=== PATIENT | male | born 1950 | race Caucasian/White ===

== ENCOUNTER 2024-04-16 12:20 | Emergency (ER) | payer MEDICARE, SELFPAY ==
--- NOTE | 2024-04-16 12:25 | ED.UPPEXIN ---
HPI - Extremity Injury (Upper) <JENNIFER Quinn Last Filed: 04/16/24 13:32> General Chief Complaint: Skin/Abscess/Foreign Body Stated Complaint: finger smashed from docking a boat Time Seen by Provider: 04/16/24 12:24 History of Present Illness HPI narrative: This is a 74-year-old male presents to the emergency department due to a left hand or finger injury. He was working with the rope to tie his boat to the dock when it got stuck between the rope and some of the metallic riging, causing him to injure his left 4th and 3rd digits to the distal tips. His tetanus is up-to-date. He was right-handed. Denies any pain to his hand or wrist or any other part of his body. Related Data Previous Rx's Medication Instructions Recorded cephalexin 500 mg capsule 500 mg PO QID #28 caps 04/16/24 Allergies Allergy/AdvReac Type Severity Reaction Status Date / Time No Known Drug Allergies Allergy Verified 04/16/24 12:27 Review of Systems <JENNIFER Quinn Last Filed: 04/16/24 13:32> Review of Systems Narrative: GENERAL: Denies chills, fatigue, malaise, fever, sweats. HEENT: Denies sinus pain, ear pain, sore throat, difficulty swallowing, dizziness. RESPIRATORY: Denies dyspnea, cough, wheezing, hemoptysis, sputum. CARDIOVASCULAR: Denies chest pain, palpitations, orthopnea, edema, GASTROINTESTINAL: Denies nausea, vomiting, abdominal pain, diarrhea, constipation, melena. : Denies dysuria, frequency, incontinence, hematuria, urinary retention. MUSCULOSKELETAL: denies weakness, joint pain, or bony pain SKIN: Left 3rd and 4th avulsion injuries NEUROLOGIC: Denies weakness, headache, numbness, change in speech, confusion, seizures, incoordination. PSYCHIATRIC: No concerning psychosocial issues. 12 point review of systems is negative except for those stated above Patient History <JENNIFER Quinn Last Filed: 04/16/24 13:32> Social History Smoking Status: Never smoker Exam <JENNIFER Quinn Last Filed: 04/16/24 13:32> Narrative Exam Narrative: GENERAL: Well-developed patient, in mild distress. HEAD: Atraumatic. Normocephalic. EYES: Pupils equal round and reactive. Extraocular motions intact. No scleral icterus. No injection or drainage. ENT: Nose without bleeding, purulent drainage. Throat without erythema, tonsillar hypertrophy or exudate. Airway patent. NECK: Trachea midline. Non tender EXTREMITIES: No edema or joint tenderness. No tenderness to palpation to the DIP the 3rd and 4th digits. NEURO: AOx3. SKIN: Avulsion injuries to the pads of the left 3rd and 4th digits, no pain to the DIP ease. Minimal oozing bleeding. Nail beds are intact. Initial Vital Signs Initial Vital Signs: Vital Signs Temperature 98.2 F 04/16/24 12:27 Pulse Rate 87 04/16/24 12:27 Respiratory Rate 16 04/16/24 12:27 Blood Pressure 147/85 H 04/16/24 12:27 Pulse Oximetry 97 04/16/24 12:27 Oxygen Delivery Method Room Air 04/16/24 12:27 <Marisela Amezquita DO - Last Filed: 04/17/24 07:12> Initial Vital Signs Initial Vital Signs: Vital Signs Temperature 98.2 F 04/16/24 12:27 Pulse Rate 87 04/16/24 12:27 Respiratory Rate 16 04/16/24 12:27 Blood Pressure 147/85 H 04/16/24 12:27 Pulse Oximetry 97 04/16/24 12:27 Oxygen Delivery Method Room Air 04/16/24 12:27 Course <Flavio Huston PA-C - Last Filed: 04/16/24 13:32> Orders Ordered: ED Orders 04/16/24 12:33 XR hand LT min 3V Stat Vital Signs Vital signs: Vital Signs - 8 hr 04/16/24 12:27 Temperature 98.2 F Pulse Rate 87 Respiratory Rate 16 Blood Pressure 147/85 H Pulse Oximetry 97 Oxygen Delivery Method Room Air <Marisela Amezquita DO - Last Filed: 04/17/24 07:12> Orders Ordered: ED Orders 04/16/24 12:33 XR hand LT min 3V Stat Vital Signs Vital signs: Vital Signs - 8 hr 04/16/24 12:27 Temperature 98.2 F Pulse Rate 87 Respiratory Rate 16 Blood Pressure 147/85 H Pulse Oximetry 97 Oxygen Delivery Method Room Air MDM - Extremity Injury (Upper) <JENNIFER Quinn Last Filed: 04/16/24 13:32> Imaging Data Extremity x-ray #1: Radiologist's Impression: [address] [address] XRay Report Signed Patient: Hung Cervantes MR#: [id number] : 1950 Acct:[id number] Age/Sex: 74 / M Date of Service: 04/16/24 Loc: ED Accession Number: [id number] Procedure: XR hand LT min 3V Ordering Provider: Marisela Amezquita D.O. PROCEDURE: XR HAND LT MIN 3V INDICATIONS: smashed fingers with open wound TECHNIQUE: 3 views of the hand(s) acquired. COMPARISON: None. FINDINGS: Bones: Distal tuft fractures of the 3rd and 4th digits. Remote amputation of the 2nd middle and distal phalanx. Carpal bones are normally aligned. No suspicious bony lesions. Soft tissues: No suspicious soft tissue calcifications. IMPRESSION: Tuft fractures of the 3rd and 4th digits. Given proximity to nail bed, these should be considered open fractures. Dictated by: Juan Saleem M.D. on 04/16/2024 at 11:58 Approved by: Juan Saleem M.D. on 04/16/2024 at 12:04 [facility] Narrative Medical decision making narrative: ED course: This is a 74-year-old male presents to the emergency department due to avulsion injuries to his left 3rd and 4th digits. X-rays showed fractures of the distal phalanxes of the 3rd and 4th digits. On investigation in the were no deeper lacerations that would benefit from closure with sutures. Avulsion injuries will be tightly bandaged. Tetanus already up-to-date. We will prescribe antibiotics due to the open fracture. Patient was in [place] and we will follow up with Orthopedics near to his home. CC: Finger injury Complicating co-morbidities: None Data collected from: Previous notes Medical records reviewed: Patient was not been to this emergency department in the past Differential considered, but not limited to: Fracture, laceration Exam documented above, pertinent findings include: No pain with palpation to the DIP joints Lab Test results independently reviewed as above. Pertinent findings: None obtained Imaging studies independently reviewed: Showed fractures of the distal phalanxes of the left 3rd and 4th digits Scores Used: None MIPS Elements: None Consultations: None Treatments: Bandaging Re-evaluations: Bleeding has stopped with bandaging Discussion: Discussed plan with the patient was comfortable with the plan Diagnosis: 3rd and 4th digit phalanx fractures Disposition: see below, along with detailed discharge instructions that have been reviewed with patient as well as indications for ED re-evaluation and additional outpatient follow up Discharge Plan Departure Patient Disposition: Home Clinical Impression: Finger fracture Activity Restrictions/Additional Instructions: Thank you for coming to the [facility] Emergency Department today. As we discussed your fractures to the distal tips of your middle and ring fingers. These are considered ?open fractures? and please begin taking the antibiotics to avoid any kind of infection. I do recommend he follow up with the orthopedist near to your home in [place] for routine follow up. Please call him on Thursday to arrange an appointment. I was unable to locate the [facility] on [address] in our system, I sent it to a [facility] on [address] in [place] Please return to the emergency department if you develop any fevers, redness spreading up the hand, or any other concerning signs or symptoms. I hope you feel better soon. Please follow up with your primary care provider within a week if your symptoms continue. If you do not have a primary care provider please contact the [facility] Resource line at [phone]. They will ask some questions about your medical history and help you get set up with a provider in the community. Prescriptions: New cephalexin 500 mg capsule 500 mg PO QID Qty: 28 0RF Stand Alone Forms: Patient Portal/API ED Sign-out <Marisela Amezquita, DO - Last Filed: 04/17/24 07:12> Cosign ED Attending Mecheature Attestation: I was available for consultation.
[2024-04-16 12:27] VITALS: BP 147/85; PULSE 87; RESP 16; TEMP 36.8; O2SAT 97; BMI 23.7
--- NOTE | 2024-04-16 12:33 | DI.RAD.S_ITS ---
PROCEDURE: XR HAND LT MIN 3V INDICATIONS: smashed fingers with open wound TECHNIQUE: 3 views of the hand(s) acquired. COMPARISON: None. FINDINGS: Bones: Distal tuft fractures of the 3rd and 4th digits. Remote amputation of the 2nd middle and distal phalanx. Carpal bones are normally aligned. No suspicious bony lesions. Soft tissues: No suspicious soft tissue calcifications. IMPRESSION: Tuft fractures of the 3rd and 4th digits. Given proximity to nail bed, these should be considered open fractures. Dictated by: Juan Saleem M.D. on 04/16/2024 at 11:58 Approved by: Juan Saleem M.D. on 04/16/2024 at 12:04
== END 2024-04-16 13:56 | disposition home or self-care (01) ==
PROVIDERS: Emergency Provider Physician Assistant Medical
DX: S62.633B Displaced fracture of distal phalanx of left middle finger, initial encounter for open fracture (principal); S62.635B Displaced fracture of distal phalanx of left ring finger, initial encounter for open fracture; W23.0XXA Caught, crushed, jammed, or pinched between moving objects, initial encounter
CPT/HCPCS: 73130; 99283